=== PATIENT | female | born 1985 | race Caucasian/White ===

== ENCOUNTER 2022-07-12 09:49 | Outpatient (CLI) | payer BC | END 2022-07-12 09:50 | disposition home or self-care (01) | LOC: CSHLAB 09:49 | PROVIDERS: ATTEND Obstetrics & Gynecology | DX: Z20.822 Contact with and (suspected) exposure to COVID-19 (principal) | CPT/HCPCS: 87811 ==

== ENCOUNTER 2022-07-16 18:00 | Inpatient (IN) | payer BC ==
[~2022-07-16 18:00] MED LIST: Bupivacaine 0.25% HCL 30 ML VIAL ONE
[2022-07-16] MEDS ORDERED: Acetaminophen 325 MG TAB PO PRN (20:19)
[2022-07-16] MEDS ORDERED: hydrALAZINE 20 MG/ML VIAL SLOW IVP PRN (20:53)
[2022-07-16] MEDS ORDERED: Docusate 100 MG CAP PO PRN (20:53)
[2022-07-16] MEDS ORDERED: Ibuprofen 800 MG TAB PO PRN (20:53)
[2022-07-16] MEDS ORDERED: Promethazine HCl 25 MG/ML VIAL IM PRN (20:53)
[2022-07-16] MEDS ORDERED: HYDROcodone/Acetaminophen 5/325 mg Tablet PO PRN ×2 (20:53)
[2022-07-16] MEDS ORDERED: Diphenoxylate HCl/Atropine Tablet PO PRN ×2 (20:53)
[2022-07-16] MEDS ORDERED: NS w/ Oxytocin 30 units 500 ML IV SCH ×2 (20:53)
[2022-07-16] MEDS ORDERED: Acetaminophen 500 MG TAB PO PRN (20:53)
[2022-07-16] MEDS ORDERED: Zolpidem Tartrate 5 MG TAB PO PRN (20:53)
[2022-07-16] MEDS ORDERED: Ondansetron PF 4 MG/2 ML Vial IVP PRN (20:53)
[2022-07-16] MEDS ORDERED: Lactated Ringer's 1,000 ML IV SCH (20:53)
[2022-07-16] MEDS ORDERED: Lidocaine 1% (PF) 30 ML VIAL SC PRN (20:53)
[2022-07-16 20:59] VITALS: BMI 37.2
[2022-07-16] MEDS ORDERED: Labetalol HCl 200 MG TAB PO SCH (21:00)
[2022-07-16] MEDS ORDERED: Misoprostol 100 MCG TAB VAG SCH (21:00)
[2022-07-16 21:49] LABS: Hemoglobin 9.8 g/dL (12.0-15.5); Mean Corpuscular HGB CONC 31.6 g/dL (32.0-36.0); Mean Corpuscular Hemoglobin 25.1 pg (27.0-33.0); Mean Corpuscular Volume 79.5 fl (81.6-98.3); Mean Platelet Volume 11.3 fl (7.4-10.4); Platelet Count 356 10x3/uL (150-450); RBC Distribution Width 15.4 % (11.5-14.5); White Blood Cell (WBC) Count 12.1 10x3/uL (3.5-10.5)
[2022-07-16 22:22] LABS: Syphilis Antibody Nonreactive (Nonreactive); Syphilis Antibody Index 0.04 S/CO (<1.00 Non-Reactive)
[2022-07-16 23:14] LABS: HBSAg Index 0.14 S/CO (0-0.99); HIV (1/2) Antibody/Antigen Non-Reactive (NonReactive); HIV 1/2 INDEX 0.09 S/CO (<1.00); Hep B Surf Ag Non-Reactive S/CO (NonReactive)
[2022-07-16] MEDS ORDERED: Fentanyl 2 mcg/Bup 0.1% Cadd 100 ML ONE (23:14)
[2022-07-16] MEDS ORDERED: Magnesium Sulfate 20 gm/500 ml 20 GM/500 ML BAG ONE (23:41)
[2022-07-17] MEDS ORDERED: Moisturizing Cream (Eucerin) 113 GM JAR TOP PRN (00:02)
[2022-07-17] MEDS ORDERED: Ondansetron PF 4 MG/2 ML Vial IVP PRN (00:02)
[2022-07-17] MEDS ORDERED: diphenhydrAMINE 50 MG/ML VIAL IVP PRN (00:02)
[2022-07-17] MEDS ORDERED: Lactated Ringer's 500 ML IV PRN (00:02)
[2022-07-17] MEDS ORDERED: ePHEDrine Sulfate 50 MG/10 ML VIAL SLOW IVP PRN (00:02)
[2022-07-17] MEDS ORDERED: Promethazine HCl 25 MG/ML VIAL IM PRN (00:02)
[2022-07-17] MEDS ORDERED: Naloxone HCl 0.4 mg/ml Vial IVP PRN ×2 (00:02)
[2022-07-17] MEDS ORDERED: Acetaminophen 325 MG TAB PO PRN (00:02)
[2022-07-17] MEDS ORDERED: Fentanyl 2 mcg/Bupivacaine 0.1% Cassette 100 ML EPIDURAL SCH (00:15)
[2022-07-17] MEDS ORDERED: Communication Order-Pharmacy FS SCH (00:15)
[2022-07-17 00:33] LABS: ALT (SGPT) 9 U/L (8-55); AST (SGOT) 16 U/L (5-34); Albumin 3.3 g/dL (3.5-5.0); Alkaline Phosphatase 93 U/L (40-110); Anion Gap 16 mmol/L (10-20); BUN (Urea Nitrogen) 9 mg/dL (7.0-18.7); Bilirubin, Total 0.4 mg/dL (0.2-1.2); Calc. Creatinine Clearance 228 mL/min (70-130); Calcium 9.5 mg/dL (7.8-10.44); Carbon Dioxide 21 mmol/L (22-29); Chloride 105 mmol/L (98-107); Estimated GFR 120; Glucose 90 mg/dL (70-105); Potassium 3.9 mmol/L (3.5-5.1); Protein, Total 6.3 g/dL (6.0-8.3); Sodium 138 mmol/L (136-145)
[2022-07-17] MEDS ORDERED: Magnesium Sulfate 20 gm/500 ml 20 GM/500 ML BAG IVPB SCH (00:45)
[2022-07-17] MEDS ORDERED: NIFEdipine XL 30 MG TAB PO SCH ×3 (00:45→21:00)
[2022-07-17] MEDS ORDERED: Fentanyl 2 mcg/Bup 0.1% Cadd 100 ML ONE (07:51)
[2022-07-17] MEDS ORDERED: Fentanyl 100 MCG/2 ML VIAL ONE (09:19)
[2022-07-17] MEDS: NIFEdipine XL 30 MG TAB PO SCH (12:18)
[2022-07-17] MEDS ORDERED: Aspirin/APAP/Caffeine Tab (Excedrin Migraine) PO PRN (15:22)
[2022-07-17] MEDS ORDERED: HYDROcodone/Acetaminophen 5/325 mg Tablet PO PRN (18:35)
[2022-07-17] MEDS: HYDROcodone/Acetaminophen 5/325 mg Tablet PO PRN (18:41)
[2022-07-17] MEDS: Docusate 100 MG CAP PO SCH (21:14)
[2022-07-17] MEDS: Ibuprofen 800 MG TAB PO SCH (21:14)
[2022-07-18] MEDS: Ibuprofen 800 MG TAB PO SCH ×3 (05:27→21:08)
[2022-07-18] MEDS: Docusate 100 MG CAP PO SCH ×2 (08:11→21:07)
[2022-07-18] MEDS: Prenatal Vitamin 1 TAB PO SCH (08:11)
[2022-07-18] MEDS: Aspirin 81 mg Enteric Coated Tablet PO SCH (08:12)
[2022-07-18] MEDS: NIFEdipine XL 30 MG TAB PO SCH (08:12)
[2022-07-18] MEDS: HYDROcodone/Acetaminophen 5/325 mg Tablet PO PRN ×2 (08:14→14:24)
[2022-07-19] MEDS: Ibuprofen 800 MG TAB PO SCH (05:37)
[2022-07-19] MEDS: NIFEdipine XL 30 MG TAB PO SCH (08:48)
[2022-07-19] MEDS: Docusate 100 MG CAP PO SCH (08:48)
[2022-07-19] MEDS: Prenatal Vitamin 1 TAB PO SCH (08:48)
[2022-07-19] MEDS: Aspirin 81 mg Enteric Coated Tablet PO SCH (08:48)
[2022-07-19 09:39] VITALS: BP 137/81; TEMP 98.3
== END 2022-07-19 12:00 | disposition home or self-care (01) | DRG 807 ==
LOC: CSHLD 18:30 → CSHPP 07-17 14:25
PROVIDERS: ADMIT Obstetrics & Gynecology; ATTEND Obstetrics & Gynecology
PROC: 3E0P7VZ Introduction of Hormone into Female Reproductive, Via Natural or Artificial Opening (ICD-10-PCS; 2022-07-16)
PROC: 10D07Z6 Extraction of Products of Conception, Vacuum, Via Natural or Artificial Opening (ICD-10-PCS; principal; 2022-07-17)
PROC: 10907ZC Drainage of Amniotic Fluid, Therapeutic from Products of Conception, Via Natural or Artificial Opening (ICD-10-PCS; 2022-07-17)
DX: O11.4 Pre-existing hypertension with pre-eclampsia, complicating childbirth (principal); Z37.0 Single live birth; O10.92 Unspecified pre-existing hypertension complicating childbirth; Z3A.37 37 weeks gestation of pregnancy; Z20.822 Contact with and (suspected) exposure to COVID-19; Z86.73 Personal history of transient ischemic attack (TIA), and cerebral infarction without residual deficits; O24.420 Gestational diabetes mellitus in childbirth, diet controlled; Z88.8 Allergy status to other drugs, medicaments and biological substances
CPT/HCPCS: 51702; 80053; 83615; 84550; 85027; 86780; 86850; 86900; 86901; 87340; 87389; J0360; J1200; J2590; S0020